=== PATIENT | male | born 1985 | race African-American/Black ===

== ENCOUNTER 2024-10-20 23:24 | Emergency (ER) | payer OTHER ==
[2024-10-20] MEDS ORDERED: Aspirin 325 MG TAB ONE (23:50)
[2024-10-20] MEDS ORDERED: Morphine 4 MG/ML VIAL ONE (23:51)
[2024-10-20 23:57] LABS: #Basophils 0.05 10x3/uL (0.0-0.2); #Eosinophils 0.19 10x3/uL (0.0-0.5); #Monocytes 0.82 10x3/uL (0.0-1.1); #Neutrophils 2.97 10x3/uL (1.5-8.4); %Basophils 0.6 % (0.0-2.0); %Eosinophils 2.4 % (0.0-6.0); %Lymphocytes 49.5 % (18.0-47.0); %Monocytes 10.2 % (0.0-10.0); %Neutrophils 36.8 % (40.0-75.0); Hematocrit 47.6 % (38.8-50.0); Hemoglobin 16.4 g/dL (13.5-17.5); Mean Corpuscular HGB CONC 34.5 g/dL (32.0-36.0); Mean Corpuscular Hemoglobin 28.6 pg (27.0-33.0); Mean Corpuscular Volume 82.9 fL (81.2-95.1); Mean Platelet Volume 10.7 fL (7.4-10.4); Platelet Count 197 10x3/uL (150-450); RBC Distribution Width 16.4 % (11.5-14.5); Red Blood Cell (RBC) Count 5.74 10x6/uL (4.32-5.72); White Blood Cell (WBC) Count 8.06 10x3/uL (3.5-10.5)
[2024-10-21 00:08] LABS: INR-International Normal Ratio 0.9; PTT 24.7 sec (22.0-33.0); Prothrombin Time 10.2 sec (9.5-12.1)
[2024-10-21 00:10] LABS: ALT (SGPT) 20 U/L (Less than 45); AST (SGOT) 22 U/L (11-34); Albumin 4.2 g/dL (3.1-4.5); Alkaline Phosphatase 90 U/L (40-110); Anion Gap 17 mmol/L (10-20); BUN (Urea Nitrogen) 14 mg/dL (8.9-20.6); Bilirubin, Total 0.2 mg/dL (0.3-1.2); Calc. Creatinine Clearance 0 mL/min (70-130); Calcium 9.5 mg/dL (7.8-10.44); Carbon Dioxide 20 mmol/L (22-29); Chloride 104 mmol/L (98-107); Estimated GFR 96; Globulin 3.1 g/dL (2.4-3.5); Glucose 168 mg/dL (70-105); Potassium 4.6 mmol/L (3.5-5.1); Protein, Total 7.3 g/dL (6.0-8.3); Sodium 136 mmol/L (136-145)
[2024-10-21 00:17] LABS: Troponin I 0.024 ng/mL (< 0.028)
[2024-10-21 00:27] LABS: Bilirubin Neg (Negative); Blood, Urine Negative (Negative); Clarity Clear (Clear); Glucose, Urine (Dipstick) Normal (Negative); Ketone, Urine 5 mg/dL (Negative); Leukocyte Negative (Negative); Nitrite Negative (Negative); Protein, Urine (Dipstick) 30 mg/dl (Neg-Trace); Urobilinogen Normal mg/dL (Less than 2)
[2024-10-21 00:35] LABS: Amphetamine Not Detected (NotDetected); Bacteria/HPF None Seen HPF (None Seen); Barbiturates Screen Not Detected (NotDetected); Benzodiazepine Screen Not Detected (NotDetected); CAUTI Indications for Culture Pelvic or flank pain; Cocaine Metabolite Screen Not Detected (NotDetected); Methadone Not Detected (NotDetected); Methamphetamine Not Detected (NotDetected); Opiate Screen Not Detected (NotDetected); Oxycodone Screen Not Detected (NotDetected); Phencyclidine (PCP) Not Detected (NotDetected); RBC/HPF 0-3 HPF (0-3); Squamous Epithelial None Seen HPF (0-3); THC/Cannabinoid Screen Not Detected (NotDetected); Tricyclic Screen Detected (NotDetected); WBC/HPF 0-3 HPF (0-3)
[2024-10-21 00:36] LABS: Urine Culture Reflex No No
[2024-10-21] MEDS ORDERED: Morphine 4 MG/ML VIAL ONE (01:48)
[2024-10-21 02:12] LABS: Troponin I 0.038 ng/mL (< 0.028)
[2024-10-21] MEDS ORDERED: Enoxaparin 100 MG (1 mL) SYRINGE ONE (03:14)
[2024-10-21] MEDS ORDERED: Clopidogrel Bisulfate 300 MG TAB ONE (03:14)
[2024-10-21] MEDS ORDERED: Iopamidol 370 76% 100 ML VIAL ONE (13:56)
== END 2024-10-21 04:58 | disposition short-term general hospital (02) ==
LOC: CSHERS 23:24
DX: I21.4 Non-ST elevation (NSTEMI) myocardial infarction (principal); E11.40 Type 2 diabetes mellitus with diabetic neuropathy, unspecified; F17.290 Nicotine dependence, other tobacco product, uncomplicated
CPT/HCPCS: 71045; 71275; 80053; 80306; 81001; 83880; 84484; 85025; 85610; 85730; 93005; 96361; 96372; 96374; 96376; J1650; J2270; Q9967